=== PATIENT | female | born 1985 | race Caucasian/White ===

== ENCOUNTER 2017-04-27 13:27 | Emergency (ER) | payer OTHER ==
[~2017-04-27] VITALS: Ht 162.6 cm; Wt 90.3 kg
[~2017-04-27 13:27] MED LIST: COLACE100 MG PO; NORCO1 TA1 PO; PROAIR HFA0.09 MG/A1 INH
[2017-04-27 14:12] LABS: BASOPHIL % 0.2 % (0-2); PLATELET COUNT 197 x10^3mcL (130-400); RED CELL DISTRIBUTION WIDTH 13.1 % (11.5-14.5)
[2017-04-27 14:26] LABS: CALCIUM 9.3 mg/dL (8.5-10.1); CARBON DIOXIDE 22.2 mmol/L (21-32); CHLORIDE SERUM 102 mmol/L (98-107); CREATININE SERUM 0.7 mg/dL (0.6-1.0); GFR1 > 60 mL/min; GLUCOSE SERUM 93 mg/dL (74-106); POTASSIUM SERUM 3.8 mmol/L (3.5-5.1); SODIUM SERUM 137 mmol/L (136-145)
[2017-04-27 14:30] LABS: ALBUMIN 4.8 g/dL (3.4-5.0); ALKALINE PHOSPHATASE 65 U/L (46-116); ALT/SGPT 36 U/L (14-59); AMYLASE 50 U/L (25-115); AST/SGOT 30 U/L (15-37); BILIRUBIN TOTAL 1.3 mg/dL (0.20-1.00); LIPASE 97 IU/L (73-393)
[2017-04-27 14:33] LABS: microscopic required? YES; urine erythrocyte NEGATIVE (NEGATIVE)
[2017-04-27 16:54] VITALS: BP 108/59
== END 2017-04-27 16:54 | disposition home or self-care (01) ==
LOC: ED 13:27
PROVIDERS: Emergency Medicine
DX: R10.9 Unspecified abdominal pain (principal); R19.7 Diarrhea, unspecified; J45.909 Unspecified asthma, uncomplicated; E66.9 Obesity, unspecified; Z88.8 Allergy status to other drugs, medicaments and biological substances; Z90.89 Acquired absence of other organs
CPT/HCPCS: 83880; J1885; J2405; J7030; Q9967

== ENCOUNTER 2017-05-03 23:22 | Emergency (ER) | payer OTHER ==
[~2017-05-03] VITALS: Ht 162.6 cm; Wt 100.9 kg
[2017-05-03 23:45] VITALS: Ht 162.6 cm; Wt 100.9 kg
[2017-05-04 02:38] VITALS: BP 116/65
== END 2017-05-04 02:38 | disposition home or self-care (01) ==
LOC: ED 23:22
DX: S83.92XA Sprain of unspecified site of left knee, initial encounter (principal); J45.909 Unspecified asthma, uncomplicated; Z88.8 Allergy status to other drugs, medicaments and biological substances; Z90.89 Acquired absence of other organs; X58.XXXA Exposure to other specified factors, initial encounter; Y93.89 Activity, other specified; Y92.39 Other specified sports and athletic area as the place of occurrence of the external cause; Y99.8 Other external cause status

== ENCOUNTER 2018-01-08 13:44 | Inpatient (IN) | payer OTHER ==
[~2018-01-08] VITALS: Ht 162.6 cm; Wt 91.3 kg
[2018-01-08 13:50] VITALS: Ht 162.6 cm; Wt 91.3 kg
[2018-01-08 14:33] LABS: BASOPHIL % 0.4 % (0-2); PLATELET COUNT 166 x10^3mcL (130-400); RED CELL DISTRIBUTION WIDTH 13.7 % (11.5-14.5)
[2018-01-08 15:09] LABS: ALBUMIN 4.2 g/dL (3.4-5.0); ALKALINE PHOSPHATASE 52 U/L (46-116); ALT/SGPT 29 U/L (14-59); AST/SGOT 22 U/L (15-37); BILIRUBIN TOTAL 0.9 mg/dL (0.20-1.00); CALCIUM 9.1 mg/dL (8.5-10.1); CARBON DIOXIDE 23.1 mmol/L (21-32); CHLORIDE SERUM 106 mmol/L (98-107); CREATININE SERUM 0.7 mg/dL (0.6-1.0); GFR1 > 60 mL/min; GLUCOSE SERUM 95 mg/dL (74-106); POTASSIUM SERUM 3.8 mmol/L (3.5-5.1); SODIUM SERUM 138 mmol/L (136-145); TOTAL PROTEIN, SERUM 8.2 g/dL (6.4-8.2)
[2018-01-08 16:33] VITALS: BP 118/76
[2018-01-08 16:52] LABS: FREE T4 0.62 ng/dL (0.76-1.46); FREE THYROXINE INDEX 1.5 ug/dL (1.4-4.5); T3 TOTAL 1.15 ng/mL; T4(THYROXINE) 5.2 ug/dL (4.7-13.3)
[2018-01-08 17:06] LABS: PHOSPHOROUS 3.1 mg/dL (2.5-4.9)
[2018-01-08 17:10] LABS: CHOLESTEROL/HDL RATIO 3.3
[2018-01-08 17:45] VITALS: BP 118/76
[2018-01-08 21:04] VITALS: BP 126/67
[2018-01-08] MEDS ORDERED: SINGULAIR10 MG PO (21:39)
[2018-01-09 05:15] VITALS: BP 126/72
[2018-01-09 08:08] LABS: CARBON DIOXIDE 18.1 mmol/L (21-32); CHLORIDE SERUM 107 mmol/L (98-107); CREATININE SERUM 0.8 mg/dL (0.6-1.0); GFR1 > 60 mL/min; GLUCOSE SERUM 193 mg/dL (74-106); MAGNESIUM 2.1 mg/dL (1.8-2.4); PHOSPHOROUS 2.3 mg/dL (2.5-4.9); POTASSIUM SERUM 3.8 mmol/L (3.5-5.1); SODIUM SERUM 138 mmol/L (136-145)
[2018-01-09 08:11] LABS: BASOPHIL % 0.1 % (0-2); PLATELET COUNT 181 x10^3mcL (130-400); RED CELL DISTRIBUTION WIDTH 13.2 % (11.5-14.5)
[2018-01-09 09:10] VITALS: BP 123/73
[2018-01-09 17:38] VITALS: BP 130/65
[2018-01-09 20:57] VITALS: BP 129/69
== END 2018-01-09 23:31 | disposition left against medical advice (07) | DRG 145 ==
LOC: ED 13:44 → MU 15:06
PROVIDERS: Emergency Medicine; Internal Medicine
DX: J20.9 Acute bronchitis, unspecified (principal); J96.01 Acute respiratory failure with hypoxia; J45.901 Unspecified asthma with (acute) exacerbation; E66.9 Obesity, unspecified; T38.0X5A Adverse effect of glucocorticoids and synthetic analogues, initial encounter; D72.829 Elevated white blood cell count, unspecified; E02 Subclinical iodine-deficiency hypothyroidism; Z53.21 Procedure and treatment not carried out due to patient leaving prior to being seen by health care provider; Z68.34 Body mass index [BMI] 34.0-34.9, adult; Z88.8 Allergy status to other drugs, medicaments and biological substances; Z90.89 Acquired absence of other organs; Z90.49 Acquired absence of other specified parts of digestive tract; Y92.89 Other specified places as the place of occurrence of the external cause; Z80.9 Family history of malignant neoplasm, unspecified
CPT/HCPCS: 83880; 84439; 87804; 94150; J1956; J2920; J2930; J3475; J7030; J7613; J7620; J7626; J7644; Q0092